=== PATIENT | female | born 1960 | race Caucasian/White ===

== ENCOUNTER 2020-04-17 11:09 | Emergency (ER) | payer BC, SELFPAY ==
--- NOTE | ~2020-04-17 | XR_ITS ---
EXAMINATION: XR wrist LT min 3V DATE: 04/17/2020 11:26 INDICATION: Left wrist pain. Fall. TECHNIQUE: 4 views of left wrist were obtained. COMPARISON: None. FINDINGS: Bone alignment is normal. No fracture. There is severe osteoarthritis of first carpometacar pal joint with loose body. IMPRESSION: 1. Severe osteoarthritis of first carpometacarpal joint with loose body. Reviewed, dictated and finalized at location A. CULTURE INTERN
[2020-04-17 11:17] VITALS: BP 129/65; PULSE 71; RESP 20; TEMP 36; O2SAT 100
--- NOTE | 2020-04-17 11:24 | ED.UPPEXIN ---
HPI - Extremity Injury (Upper) General Chief Complaint: Extremity Injury, Upper Stated Complaint: FALL/L WRIST/ARM INJURY Time Seen by Provider: 04/17/20 11:24 Source: patient and RN notes reviewed Mode of arrival: ambulatory Limitations: no limitations History of Present Illness HPI narrative: 59-year-old female with history of osteoarthritis, depression, hypercholesterol, hypothyroidism presents with concern for left wrist pain. Reports she fell 1 week ago, injuring her left wrist. Reports pain subsided, denies bruising or swelling, open skin. Reports she felt a popping sensation last night, had increased pain. Reports she has been wearing a splint, and pain has been improved. Reports she has been using meloxicam since her pain started. Denies any decreased strength, sensation, range of motion MD complaint: injury to: left and wrist Related Data Home Medications Medication Instructions Recorded Confirmed aloe vera 5,000 mg capsule mg PO BID cap 06/04/19 09/23/19 aspirin 81 mg tablet,delayed 81 mg PO DAILY 06/04/19 09/23/19 release cholecalciferol (vitamin D3) 50 4,000 unit PO DAILY tablet 06/04/19 09/23/19 mcg (2,000 unit) tablet citalopram 20 mg tablet 20 mg PO DAILY 06/04/19 09/23/19 lamotrigine 100 mg tablet 100 mg PO DAILY 06/04/19 09/23/19 alprazolam 04/17/20 Allergies Allergy/AdvReac Type Severity Reaction Status Date / Time Sulfa (Sulfonamide Allergy Mild Unverified 09/17/08 14:48 Antibiotics) sulfamethoxazole Allergy Mild Unverified 09/17/08 14:48 amoxicillin Allergy Unknown Verified 06/28/18 08:44 sulfamethizole Allergy Unknown Verified 06/28/18 08:43 trimethoprim Allergy Unknown Verified 06/28/18 08:43 Review of Systems Review of Systems: Narrative: CONSTITUTIONAL: Denies malaise, chills, sweats, or fever. CARDIOVASCULAR: Denies chest pain, palpitations, or edema. RESPIRATORY: Denies dyspnea. SKIN: Denies open skin, rash, bruising MUSCULOSKELETAL: Reports left wrist pain, denies numbness or weakness. All systems reviewed & are unremarkable except as noted in HPI and below PMFSH Past Medical History Medical History (Updated 04/17/20 @ 11:39 by Betty Ambrose NP) Allergies Page syndrome Chicken pox Depression Hypercholesterolemia Hypothyroidism Measles Mumps Osteoarthritis Surgical History Surgical History (Updated 06/04/19 @ 08:00 by María Elena Herrera CMA) Hx of cholecystectomy Family History Family History (Updated 06/04/19 @ 11:19 by María Elena Herrera CMA) Mother Patient's mother is in good health Sibling History of kidney cancer GERD (gastroesophageal reflux disease) Depression Father Heart disease Cerebrovascular accident Sibling Breast cancer GERD (gastroesophageal reflux disease) Lung cancer metastatic to brain Social History Social History Smoking status: Former smoker Smoking end date: 06/05/99 Alcohol intake: never Comments At time of signature, agree with nursing past medical, surgical, social and family history. There is no relevant family history pertinent to the presenting complaint Exam Narrative: Exam Narrative: GENERAL: Well-appearing, well-nourished, and in no acute distress. HEAD: Normocephalic, atraumatic. EYES: PERRLA, conjunctivae clear NECK: Supple. CHEST: Speaks in full sentences. No respiratory distress. HEART: Regular rate and rhythm. Normal and equal peripheral pulses. EXTREMITIES: Left hand, digits, wrist, arm have normal sensation. No edema, erythema, ecchymosis. No open wounds, no skin tenting, no devitalized tissue or atrophy, no trophic changes, no obvious deformity, alignment normal, nearby joints and structures intact. Distal pulses palpable and equal bilaterally, skin warm, dry, pink. Capillary refill less than 3 seconds. SKIN: Warm, dry, no rash. NEURO: Alert and oriented x3. PSYCH: Normal mood and affect Course Course Emergency Course: Patient is aware of diagnosis, understands and agrees t
== END 2020-04-17 11:47 | disposition home or self-care (01) ==
PROVIDERS: Emergency Provider Nurse Practitioner; PCP Internal Medicine
DX: M25.532 Pain in left wrist (principal); Z87.891 Personal history of nicotine dependence; E78.00 Pure hypercholesterolemia, unspecified; E03.9 Hypothyroidism, unspecified; F32.9 Major depressive disorder, single episode, unspecified; M19.90 Unspecified osteoarthritis, unspecified site; Z79.82 Long term (current) use of aspirin
CPT/HCPCS: 73110; 99213; G0463

== ENCOUNTER → 2021-12-27 10:18 | Outpatient (CLI) | payer BC, SELFPAY ==
--- NOTE | ~2021-12-27 | MM_ITS ---
EXAMINATION: MM screening steven BI w ludivina HISTORY: Screening mammogram TECHNIQUE: Craniocaudal and mediolateral oblique 3-D tomosynthesis images were obtained and synthetic 2-D images were generated. CAD analysis was submitted and interpreted. COMPARISON: 12/13/2016, 11/18/2015 bilateral screening mammogram examinations BREAST PARENCHYMAL COMPOSITION: The breasts are almost entirely fatty. FINDINGS: There is no evidence of suspicious mass, calcification, or architectural distortion to sugg est malignancy in either breast. There has been no suspicious interval change. IMPRESSION: 1. No mammographic evidence of malignancy. 2. Recommend routine screening mammography in one year. BI-RADS Category 1: Negative Reviewed, dictated and finalized at location A.
== END ==
PROVIDERS: PCP Internal Medicine; Visit Provider Internal Medicine
DX: Z12.31 Encounter for screening mammogram for malignant neoplasm of breast (principal)
CPT/HCPCS: 77063; 77067

== ENCOUNTER 2024-01-12 09:41 | Outpatient (CLI) | payer BC, SELFPAY ==
--- NOTE | ~2024-01-12 | US_ITS ---
EXAMINATION: US thyroid DATE: 01/12/2024 09:56 INDICATION: Nontoxic single thyroid nodule. TECHNIQUE: Multiple ultrasound images of the thyroid were obtained. COMPARISON: None. FINDINGS: The right thyroid lobe measures 4.2 x 2.1 x 1.4 cm. The left thyroid lobe measures 3.7 x 1.5 x 1.4 c m. The thyroid demonstrates coarsened echotexture and hypoechogenicity. No discrete nodule. Vascular ity is normal. IMPRESSION: 1. Heterogeneous thyroid, likely chronic lymphocytic (Patricia) thyroiditis. Reviewed, dictated and finalized at location A.
== END 2024-01-12 09:42 ==
LOC: MICIMG 09:41
PROVIDERS: PCP Nurse Practitioner; Visit Provider Nurse Practitioner
DX: E04.1 Nontoxic single thyroid nodule (principal)
CPT/HCPCS: 76536

== ENCOUNTER 2024-05-09 13:49 | Outpatient (CLI) | payer BC, SELFPAY ==
--- NOTE | ~2024-05-09 | MM_ITS ---
EXAMINATION: MM screening steven BI w ludivina HISTORY: Screening TECHNIQUE: Craniocaudal and mediolateral oblique 3-D tomosynthesis images were obtained and synthetic 2-D images were generated. CAD analysis was submitted and interpreted. COMPARISON: Comparison to multiple prior studies sequentially, with oldest reviewed study dated 12/27. BREAST PARENCHYMAL COMPOSITION: Not Dense: The breasts are almost entirely fatty. FINDINGS: There is no evidence of suspicious mass, calcification, or architectural distortion to sugg est malignancy in either breast. There has been no suspicious interval change. IMPRESSION: 1. No mammographic evidence of malignancy. 2. Recommend routine screening mammography in one year. BI-RADS Category 1: Negative Reviewed, dictated and finalized at location B. AL TECHNICIAN [employer]
== END 2024-05-09 13:50 | disposition home or self-care (01) ==
LOC: MICIMG 13:49
PROVIDERS: PCP Nurse Practitioner; Visit Provider Internal Medicine
DX: Z12.31 Encounter for screening mammogram for malignant neoplasm of breast (principal)
CPT/HCPCS: 77063; 77067